=== PATIENT | female | born 1995 | race Caucasian/White ===

== ENCOUNTER 2017-08-10 20:37 | Emergency (ER) | payer OTHER ==
[~2017-08-10] VITALS: Ht 160 cm; Wt 58.0 kg
[~2017-08-10 20:37] MED LIST: IBUP200C11 PO; POLY17PO6 PO
[2017-08-10 21:00] VITALS: Ht 160 cm; Wt 58.0 kg
[2017-08-10] MEDS ORDERED: KETOROLAC 30 MG INJ IM STA (23:12)
[2017-08-10 23:49] LABS: BASOPHIL # 0.1 10^3/ul (0.0-0.1); BASOPHILS % 0.8 % (0.0-2.0); EOSINOPHILS # 0.5 10^3/ul (0.0-0.5); EOSINOPHILS % 5.7 % (0.0-7.0); HEMATOCRIT 42.9 % (37.0-47.0); HEMOGLOBIN 14.4 g/dl (12.0-16.0); LYMPHOCYTES # 2.7 10^3/ul (0.8-2.9); LYMPHOCYTES % 29.8 % (18.0-55.0); MEAN CORPUSCULAR HEMOGLOBIN 29.6 pg (29.0-33.0); MEAN CORPUSCULAR HGB CONC 33.6 g/dl (32.0-37.0); MEAN CORPUSCULAR VOLUME 88.1 fl (72.0-104.0); MEAN PLATELET VOLUME 10.1 fl (7.4-10.4); MONOCYTE # 0.7 10^3/ul (0.3-0.9); NEUTROPHIL # 4.9 10^3/ul (1.6-7.5); NEUTROPHILS % 55.1 % (30.0-74.0); PLATELET COUNT 266 10^3/UL (140-415); RED BLOOD COUNT 4.87 10^6/ul (4.20-5.40); RED CELL DISTRIBUTION WIDTH 11.9 % (11.5-14.5)
[2017-08-11 00:04] LABS: ALANINE AMINOTRANSFERASE 31 IU/L (13-69); ALBUMIN 4.6 g/dl (3.3-4.9); ALBUMIN/GLOBULIN RATIO 1.35; ALKALINE PHOSPHATASE 77 IU/L (42-121); ANION GAP 14 (8-16); ASPARTATE AMINO TRANSFERASE 21 IU/L (15-46); BILIRUBIN,INDIRECT 0.3 mg/dl (0-1.1); BILIRUBIN,TOTAL 0.3 mg/dl (0.2-1.3); BLOOD UREA NITROGEN 14 mg/dl (7-20); CALCIUM 9.4 mg/dl (8.4-10.2); CARBON DIOXIDE 25 mmol/L (21-31); CHLORIDE 103 mmol/L (97-110); CREATININE 0.84 mg/dl (0.44-1.00); GLUCOSE 93 mg/dl (70-220); POTASSIUM 3.6 mmol/L (3.5-5.1); SODIUM 138 mmol/L (135-144)
--- NOTE | 2017-08-11 00:07 | RADRPT ---
PROCEDURE: XR Chest. CLINICAL INDICATION: Chest pain. TECHNIQUE: Single AP portable chest. COMPARISON: 05/01/2014 Chest x-ray FINDINGS: The cardiomediastinal silhouette is within normal limits of size. The lungs are clear without pleur al effusion or focal consolidation. No pneumothorax. The osseous structures and soft tissues are unr emarkable. IMPRESSION: 1. No evidence for active cardiopulmonary disease. RPTAT:AAJJ Oswald Hagan Physician Date Time Electronically viewed and signed by Oswald Hagan Physician on 08/11/2017 00:06 NIKITA/
[2017-08-11 00:17] LABS: B-TYPE NATRIURETIC PEPTIDE 51 PG/ML (0-125)
[2017-08-11 00:18] LABS: TROPONIN-I < 0.012 ng/ml (0.00-0.12)
--- NOTE | 2017-08-11 00:30 | ERD ---
ER Documentation Chief Complaint Date/Time DATE: 08/10/17 Chief Complaint Chest wall pain HPI The patient is a 22-year-old female who presents to the Emergency Department with complaint of chest pain. The patient reports the pain is localized to the left chest wall, and is constant. She notes that the pain is worse with movement of the upper extremities, with taking a deep breath, and with palpation of the area. It is improved at rest. She denies any radiation of pain to the neck, jaw, shoulder or extremity. Denies any paresthesias or weakness of the distal extremities. She rates her current pa in as 05/06, but has not yet taken any medication for pain relief. She denies any fevers, sweats, chills, nausea, vomiting, diaphoresis. Denies history of similar symptoms in the past. Denies family history of sudden cardiac , or any pertinent family cardiac history. Denies any exertional symptoms. Denies any trauma or injury to the chest. Denies palpitations, shortness of breath or cough. Denies recent travel, lower extremity swelling, calf swelling/tenderness, exogenous estrogen use, prolonged periods of immobilization, recent , recent surgery. Denies history of DVT/PE. Denies recent URI symptoms. Denies tobacco, alcohol or illicit drug use. Denies history of diabetes, hypertension, dyslipidemia. No other complaints at this time. ROS All systems reviewed and are negative except as per history of present illness. Medications Home Meds Active Scripts Naproxen* (Naprosyn*) 500 Mg Tablet, 500 MG PO BID Y for PAIN AND/OR INFLAMMATION, #30 TAB Prov:SHAUN DU PA-C 08/11/17 Polyethylene Glycol* (Miralax*) 17 Gm Powd.pack, 17 GM PO DAILY, #30 PACKET dissolve in 8 oz liquid Prov:ROSITA FARR MD 01/03/15 Reported Medications Ibuprofen* (Advil*) 200 Mg Capsule, 200 MG PO Q6H Y for PAIN, CAP 12/28/14 Allergies Allergies: Coded Allergies: No Known Allergy (Verified , 12/29/14) PMhx/Soc History of Surgery: Yes () Anesthesia Reaction: No Hx Neurological Disorder: No Hx Respiratory Disorders: No Hx Cardiac Disorders: No Hx Psychiatric Problems: No Hx Miscellaneous Medical Probl: Yes (CHRONIC CONSTIPATION) Hx Alcohol Use: No Hx Substance Use: No Hx Tobacco Use: No Physical Exam Vitals Vital Signs Date Time Temp Pulse Resp B/P Pulse Ox O2 Delivery O2 Flow Rate FiO2 08/11/17 01:09 98.2 72 16 110/62 99 08/10/17 21:00 98.7 78 22 92/50 98 Physical Exam GENERAL: Well-developed, well-nourished, in no acute distress HEENT: Head is normocephalic, atraumatic. No scleral pallor or icterus. Pupils equal, round and reactive to light. Conjunctiva pink. Nares are patent bilaterally. Moist mucous membranes. NECK: Supple. Full range of motion. No JVD. RESPIRATORY: Lungs are clear to auscultation bilaterally. No rales, rhonchi or wheezing. Equal breath sounds. Normal expiratory effort. CARDIOVASCULAR: Regular rate and rhythm. S1 and S2 normal. No murmurs, rubs, or gallops. CHEST WALL: Tenderness to palpation over the left anterior chest wall, noted by facial wincing and the patient withdrawing from pain. Symmetric expansion. No flail chest. No crepitus. GASTROINTESTINAL: Abdomen is soft, nontender, and nondistended. No guarding, no rebound tenderness. Normal bowel sounds. EXTREMITIES: No clubbing, cyanosis, or edema. Normal skin perfusion. Moving all extremities. Muscle tone is normal. No focal swelling or erythema. No calf swelling/tenderness. Distal pulses are palpable, 2+ bilaterally. Capillary refill is less than 2 seconds. NEUROLOGIC: The patient is alert, awake, and oriented x 3. No focal neurologic deficits. Motor normal in all extremities. Sensation grossly intact. INTEGUMENT: Skin is clean, dry and intact. No rashes, lesions or petechiae present. Normal turgor. PSYCHIATRIC: Appropriate; Cooperative. Result Diagram: 08/10/17 2337 08/10/17 2337 Results 24 hrs Laboratory Tests Test 08/10/17 23:37 White Blood Count 9.010^3/ul Red Blood Count 4.8710^6/ul Hemoglobin 14.4g/dl Hematocrit 42.9% Mean Corpuscular Volume 88.1fl Mean Corpuscular Hemoglobin 29.6pg Mean Corpuscular Hemoglobin Concent 33.6g/dl Red Cell Distribution Width 11.9% Platelet Count 26840^3/UL Mean Platelet Volume 10.1fl Neutrophils % 55.1% Lymphocytes % 29.8% Monocytes % 8.0% Eosinophils % 5.7% Basophils % 0.8% Nucleated Red Blood Cells % 0.0/100WBC Neutrophils # 4.910^3/ul Lymphocytes # 2.710^3/ul Monocytes # 0.710^3/ul Eosinophils # 0.510^3/ul Basophils # 0.110^3/ul Nucleated Red Blood Cells # 0.010^3/ul Sodium Level 138mmol/L Potassium Level 3.6mmol/L Chloride Level 103mmol/L Carbon Dioxide Level 25mmol/L Anion Gap 14 Blood Urea Nitrogen 14mg/dl Creatinine 0.84mg/dl Glucose Level 93mg/dl Calcium Level 9.4mg/dl Total Bilirubin 0.3mg/dl Direct Bilirubin 0.00mg/dl Indirect Bilirubin 0.3mg/dl Aspartate Amino Transf (AST/SGOT) 21IU/L Alanine Aminotransferase (ALT/SGPT) 31IU/L Alkaline Phosphatase 77IU/L Troponin I < 0.012ng/ml B-Type Natriuretic Peptide 51PG/ML Total Protein 8.0g/dl Albumin 4.6g/dl Globulin 3.40g/dl Albumin/Globulin Ratio 1.35 Current Medications Medications (Trade) Dose Ordered Sig/Elza Route PRN Reason Start Time Stop Time Status Last Admin Dose Admin Ketorolac Tromethamine (Toradol) 30 mg ONCE STAT IM 08/10/17 23:12 08/10/17 23:14 DC 08/11/17 00:55 Procedures/MDM DIAGNOSTIC TESTS AND INTERPRETATION: PROCEDURE: XR Chest. CLINICAL INDICATION: Chest pain. TECHNIQUE: Single AP portable chest. COMPARISON: 05/01/2014 Chest x-ray FINDINGS:The cardiomediastinal silhouette is within normal limits of size. The lungs are clear without pleural effusion or focal consolidation. No pneumothorax. The osseous structures and soft tissues are unremarkable. IMPRESSION: 1. No evidence for active cardiopulmonary disease. Physician Maureen Date Time Electronically viewed and signed by Physician Maureen on 08/11/2017 00:06 EKG Reviewed and interpreted by: Dr. Murillo EKG Interpretation: Normal sinus rhythm. Rate 69 bpm. Normal axis. No ST- segment elevations. No ectopy. No LBBB. MEDICAL DECISION MAKING: This is a 22-year-old female presenting to the Emergency Department with chest pain. The patient had tenderness to palpation over the left chest wall on physical examination, but otherwise, no significant abnormalities were noted. Vital signs were stable. Patient is afebrile, with no tachycardia, no tachypnea, and normal O2 saturation. The differential diagnosis includes, but is not limited to gastritis, trauma, pneumothorax, dysrhythmia, hypertrophic cardiomyopathy, pericarditis, Prinzmetal angina, myocardial infarction, mitral valve prolapse, peptic ulcer disease, GERD, pleurisy, costochondritis, endocarditis, musculoskeletal pain, acute coronary syndrome, pulmonary embolism, aortic dissection, esophageal perforation, myocarditis, tamponade. The clinical presentation does not suggest an acute coronary syndrome, acute pulmonary embolism or any other emergent medical condition at this time. Labs: CBC reveals no leukocytosis. Hemoglobin and hematocrit are stable, no significant anemia noted. Electrolytes within normal limits, no indication for electrolyte replacement. BUN and creatinine normal, no evidence of pre-renal azotemia or acute kidney injury. Troponin < 0.012, greater than 6 hours after chest pain began making NSTEMI unlikely. Unstable angina unlikely on history/physical exam. Pulmonary embolism unlikely given risk factor profile and very atypical presentation. Aortic dissection unlikely given equal pulses and no tearing pain. Esophageal perforation unlikely: no retching or recent instrumentation. No evidence of pneumothorax on CXR, and patient has normal O2 saturation, and no signs of respiratory distress. After rest and administration of Toradol, patient's symptoms greatly improved. Upon review and interpretation of the patient's presentation and overall ER course, I believe patient's symptoms are most consistent with chest wall pain. At this time, the patient is in stable condition and therefore can be discharged home with prescription for Naproxen and given strict return precautions or signs of deteriorating or worsening condition. She is advised to follow up with her primary care provider within 2-3 days for reevaluation and further management, or return to the ER sooner if symptoms worsen. If symptoms return or worsen, patient should also consider outpatient cardiology evaluation. I shared my medical decision making and plan with the patient at length and in great detail, and she verbally understands and agrees with the plan for further observation and care as an outpatient. At the time of discharge, all questions were answered. Departure Diagnosis: Primary Impression: Chest wall pain Condition: Stable Patient Instructions: Chest Wall Pain, Costochondritis Additional Instructions: Call your primary care doctor TOMORROW for an appointment during the next 2-3 days.See the doctor sooner or return here if your condition worsens before your appointment time. SHAUN DU PA-C Aug 11, 2017 00:30
[2017-08-11] MEDS ORDERED: NAPR-260 PO (00:31)
[2017-08-11 01:09] VITALS: BP 110/62; PULSE 72; RESP 16; TEMP 98.2
== END 2017-08-11 01:13 | disposition home or self-care (01) ==
LOC: FTE 20:37
DX: R07.89 Other chest pain (principal)
CPT/HCPCS: 36415; 71010; 80053; 83880; 84484; 85025; 93005; 96372; 99285; J1885

== ENCOUNTER 2018-02-18 15:49 | Emergency (ER) | END 2018-02-18 17:00 | disposition home or self-care (01) ==

== ENCOUNTER 2018-09-09 21:13 | Emergency (ER) | END 2018-09-10 00:07 | disposition home or self-care (01) ==